=== PATIENT | female | born 1965 | race Caucasian/White ===

== ENCOUNTER → 2019-05-22 09:22 | Outpatient (BNVA) | payer OTHER, SELFPAY | PROVIDERS: Family Provider Nurse Practitioner Family; PCP Nurse Practitioner Family; Visit Provider Registered Nurse | DX: I10 Essential (primary) hypertension (principal); R60.9 Edema, unspecified; Z12.39 Encounter for other screening for malignant neoplasm of breast | CPT/HCPCS: 80053; 80061; 85025 ==

== ENCOUNTER 2019-11-16 06:00 | Outpatient (RCR) | payer OTHER, SELFPAY | END 2019-12-13 23:59 | disposition home or self-care (01) | LOC: WPT 06:00 | PROVIDERS: PCP Registered Nurse; Referring Provider Registered Nurse; Visit Provider Registered Nurse | DX: M65.822 Other synovitis and tenosynovitis, left upper arm (principal); R20.2 Paresthesia of skin | CPT/HCPCS: 97110; 97140; 97161 ==

== ENCOUNTER → 2020-08-05 10:29 | Outpatient (BNVA) | payer OTHER, SELFPAY | PROVIDERS: PCP Registered Nurse; Visit Provider Registered Nurse | DX: I10 Essential (primary) hypertension (principal); E78.5 Hyperlipidemia, unspecified; Z12.31 Encounter for screening mammogram for malignant neoplasm of breast; R60.9 Edema, unspecified; Z00.00 Encounter for general adult medical examination without abnormal findings; Z53.20 Procedure and treatment not carried out because of patient's decision for unspecified reasons; E66.01 Morbid (severe) obesity due to excess calories; Z68.43 Body mass index [BMI] 50.0-59.9, adult; Z71.3 Dietary counseling and surveillance | CPT/HCPCS: 80053; 80061; 85025 ==

== ENCOUNTER → 2021-07-16 11:08 | Outpatient (BNVA) | payer OTHER, SELFPAY | PROVIDERS: PCP Registered Nurse; Visit Provider Registered Nurse | DX: I10 Essential (primary) hypertension (principal); R60.9 Edema, unspecified; L65.9 Nonscarring hair loss, unspecified; E78.5 Hyperlipidemia, unspecified; R20.0 Anesthesia of skin; R20.2 Paresthesia of skin | CPT/HCPCS: 80053; 82306; 85025 ==

== ENCOUNTER → 2021-07-18 08:20 | Outpatient (BNVA) | payer OTHER, SELFPAY | PROVIDERS: PCP Registered Nurse; Visit Provider Registered Nurse | DX: I10 Essential (primary) hypertension (principal); R60.9 Edema, unspecified; L65.9 Nonscarring hair loss, unspecified; E78.5 Hyperlipidemia, unspecified; R20.0 Anesthesia of skin; R20.2 Paresthesia of skin; E66.01 Morbid (severe) obesity due to excess calories; Z68.43 Body mass index [BMI] 50.0-59.9, adult; L82.1 Other seborrheic keratosis | CPT/HCPCS: 80061; 82607; 84443 ==

== ENCOUNTER → 2021-07-24 11:13 | Outpatient (BNVA) | payer OTHER, SELFPAY | PROVIDERS: PCP Registered Nurse; Visit Provider Registered Nurse | DX: Z01.419 Encounter for gynecological examination (general) (routine) without abnormal findings (principal) | CPT/HCPCS: 87624 ==

== ENCOUNTER → 2021-07-30 09:13 | Outpatient (BNVA) | payer OTHER, SELFPAY | PROVIDERS: PCP Registered Nurse; Visit Provider Registered Nurse | DX: I10 Essential (primary) hypertension (principal); R60.9 Edema, unspecified; L65.9 Nonscarring hair loss, unspecified; E78.5 Hyperlipidemia, unspecified; R20.0 Anesthesia of skin; R20.2 Paresthesia of skin; Z12.31 Encounter for screening mammogram for malignant neoplasm of breast; E66.01 Morbid (severe) obesity due to excess calories; Z68.43 Body mass index [BMI] 50.0-59.9, adult; L82.1 Other seborrheic keratosis; L91.0 Hypertrophic scar | CPT/HCPCS: 80061; 82607; 84443 ==

== ENCOUNTER 2021-09-01 13:43 | Outpatient (CLI) | payer OTHER, SELFPAY ==
--- NOTE | 2021-09-01 13:53 | MM_ITS ---
WS: [id number] BILATERAL 3D TOMOSYNTHESIS DIGITAL SCREENING MAMMOGRAPHY WITH CAD CLINICAL INFORMATION: SCREEN HISTORY: Screening mammogram. No current complaints. COMPARISON: August 29, 2020 TECHNIQUE: Bilateral CC and MLO views. FINDINGS: Scattered fibroglandular densities bilaterally. A few incidental punctate calcifications. Stable dens e breast tissue upper outer breasts bilaterally which are benign. No suspicious focal mass, asymmetry , calcifications, or architectural distortion. No evidence of malignancy. MM/[place] [id number] IMPRESSION: BI-RADS: 2-Benign FOLLOW UP: 1 Year Follow-up Recommend return to annual screening mammography.
== END 2021-09-01 13:44 | disposition home or self-care (01) ==
LOC: RAD 13:44
PROVIDERS: PCP Registered Nurse; Visit Provider Registered Nurse
DX: Z12.31 Encounter for screening mammogram for malignant neoplasm of breast (principal)
CPT/HCPCS: 77063; 77067

== ENCOUNTER 2021-11-13 08:34 | Day surgery (SDC) | payer OTHER, SELFPAY ==
[2021-11-11 13:52] VITALS: BMI 49.4
[2021-11-13 08:50] VITALS: BP 187/129; PULSE 73; RESP 18; TEMP 36.9; O2SAT 96
--- NOTE | 2021-11-13 08:56 | W.PM.OPSFHP ---
Same Day Surgery H&P Indication for Procedure/HPI DATE OF PROCEDURE: November 13, 2021 CHIEF COMPLAINT/INDICATIONFOR SURGICAL PROCEDURE: Screening colonoscopy PREOP DIAGNOSIS: Screening colonoscopy PLANNED PROCEDURE: Operation Date: 11/13/21 10:30 Proposed Procedures p Colonoscopy 56057,Z12.11(Not Applicable) - Richard Rey MD This is a pleasant 55 years old female patient referred to my practice for screening colonoscopy. Patient had a positive Cologuard test she reports that she had hemorrhoid. No history of colon cancer ROS All systems have been reviewed negative except as for the above or per problem list. Medications/Allergies* Home Medications Medication Instructions Recorded Confirmed Type diltiazem HCl 360 mg 360 mg PO DAILY 11/11/21 11/13/21 History capsule,extended release 24 hr furosemide 40 mg tablet 40 mg PO DAILY 11/11/21 11/13/21 History potassium 99 mg tablet 99 mg PO DAILY 11/11/21 11/13/21 History telmisartan 20 mg tablet 20 mg PO DAILY 11/11/21 11/13/21 History Allergies/Adverse Reactions Allergy/AdvReac Type Severity Reaction Status Date / Time lisinopril Allergy Lip Verified 11/13/21 09:26 swelling and tingling Pertinent History/Comorbid Conditions* Medical History (Updated 09/30/21 @ 14:26 by ANTONINA Mckeon) Essential hypertension Family History (Updated 05/22/19 @ 08:31 by Kalyn Patel LPN) Hypertension Social History Smoking and tobacco status: never smoked Alcohol intake: never Adopted: No Caregiver/support person: No Lives independently: Yes Current occupational status: employed History of recent travel: No Current gender identity: Female Pertinent Exam Findings alert, oriented x 3, clear to auscultation bilaterally, regular rate & rhythm and procedure specific exam findings (Abdominal exam nontender nondistended soft) Recommendations Surgery/Procedure today (Colonoscopy with possible biopsy) Other Plans: Plan of care; After thorough history and physical examination and reviewing the chart, plan to perform screening colonoscopy. I discussed with the patient in details the risks,benefits,alternatives and indications.The risk of aspiration, bleeding, soft tissue injury, perforation of the colon and other potential concomitant complications were explained to the patient in details,also the potential need for Laproscoy/Laparotomy to repair any related complications including but not limited to colectomy and or Closotomy.The patient understood this well and did agree to proceed. Rationale was carefully and clearly discussed with the patient.Appropriate informed consent have been reviewed and signed All questions have been answered and all concerns have been addressed to patient's satisfaction. Verbal and written Instructions were given to the patient for colonoscopy prep Coding Level of Care Code Acute Convention Services Manager for [facility] Davis
[2021-11-13] MEDS: sodium chloride 0.9% 1,000 ML 30 ML IV (09:11)
--- NOTE | 2021-11-13 09:55 | ANES.PREANE2 ---
Pre-Anesthetic Assessment Height/Weight: Height 1.73 m Weight 147.418 kg Temp Pulse Resp BP Pulse Ox O2 Del Method 98.4 F 73 18 187/129 96 11/13/21 08:50 11/13/21 08:50 11/13/21 08:50 11/13/21 08:50 11/13/21 08:50 11/13/21 08:50 Preop Diagnosis: Screening colonoscopy Operation Date: 11/13/21 10:30 Proposed Procedures p Colonoscopy 31787,Z12.11(Not Applicable) - Richard Rey MD Familial anesthetic complications: None Was Beta Carisa taken within 24 hours: N/A Was Clonidine taken within 24 hours: N/A Last intake: Intake Last Liquid Date 11/12/21 Last Liquid Time 23:00 Last Solid Date 11/11/21 Last Solid Time 22:00 Social No alcohol and No tobacco Exam alert, oriented x 3, clear to auscultation bilaterally and regular rate & rhythm Airway Submandibular: within normal limits Cervical ROM: within normal limits Mallampati: Class I Dentition: full History/ROS No significant complaints Pulmonary None reported Snores loudly, tired in day, no witnessed apnea, high blood pressure, BMI > 35, Age > 50, large neck, female --> high risk for JAMAL CV/HEM Hypertension B12 deficiency None reported Hepatic None reported GI None reported Metabolic None reported Musc/skel Osteoarthritis/DJD (Chronic knee pain ) Alopecia Neuropsych None reported Anesthetic Plan ASA status: 3 Anesthesia: Anesthesia Evaluation, General and MAC Other: I discussed with the patient risks, goals, and benefits of MAC and general anesthesia. We discussed spectrum of MAC anesthesia including conversion to general as well as possibility of recall of intraoperative stimuli including discomfort/pain. Patient agrees to proceed with MAC. Risk of > 500 ml blood loss (7ml/kg in children): No Medications/Allergies Home Medications Medication Instructions Recorded Confirmed Last Taken Type cyanocobalamin (vitamin B-12) 1,000 mcg SUBCUT .once a month 08/01/21 11/13/21 10/17/21 Rx 1,000 mcg/mL injection kit days #1 ea needle 21 g #1 ea 08/01/21 10/16/21 Unknown Rx syringe 3 ml #1 ea 08/01/21 10/16/21 Unknown Rx diltiazem HCl 360 mg 360 mg PO DAILY 11/11/21 11/13/21 11/12/21 History capsule,extended release 24 hr furosemide 40 mg tablet 40 mg PO DAILY 11/11/21 11/13/21 11/12/21 History potassium 99 mg tablet 99 mg PO DAILY 11/11/21 11/13/21 11/12/21 History telmisartan 20 mg tablet 20 mg PO DAILY 11/11/21 11/13/21 11/12/21 History Allergies Allergy/AdvReac Type Severity Reaction Status Date / Time lisinopril Allergy Lip Verified 11/13/21 09:26 swelling and tingling Current Medications Generic Name Dose Route Start Last Admin Trade Name Freq PRN Reason Stop Dose Admin Sodium Chloride 1,000 mls @ 30 mls/hr 11/13/21 08:45 11/13/21 09:11 Sodium Chloride 0.9% IV 11/14/21 08:44 30 mls/hr .Q24H CHRISTIANO Administration PFSH Anesthesia Medical History Essential hypertension Family History Other Hypertension Social History Smoking and tobacco status: never smoked Alcohol intake: never Adopted: No Caregiver/support person: No Lives independently: Yes Current occupational status: employed History of recent travel: No Current gender identity: Female Data Anesthesia Cardiac Studies: No Data to Display
[2021-11-13 11:01] VITALS: BP 98/70; PULSE 68; RESP 12; TEMP 36.3; O2SAT 95
[2021-11-13 11:12] VITALS: BP 116/83; PULSE 61; RESP 16; O2SAT 97
--- NOTE | 2021-11-13 15:14 | ANE.PACU2 ---
Inpatient post-anesthesia follow up: Airway intact: Yes Vital signs: Temperature 97.3 F Pulse Rate 61 Respiratory Rate 16 Blood Pressure 116/83 Pulse Oximetry 97 Oxygen Delivery Me thod Room Air Oxygen Flow Rate Fraction of Inspir ed Oxygen Hydration adequate: Yes Nausea and vomiting: No Pain level: 1 Mental status: Baseline
== END 2021-11-13 11:27 | disposition home or self-care (01) ==
PROVIDERS: PCP Registered Nurse; Visit Provider Surgery
PROC: 0DJD8ZZ Inspection of Lower Intestinal Tract, Via Natural or Artificial Opening Endoscopic (ICD-10-PCS; CPT 45378; principal; 2021-11-13 10:30)
DX: Z12.11 Encounter for screening for malignant neoplasm of colon (principal); R19.5 Other fecal abnormalities; K64.9 Unspecified hemorrhoids; I10 Essential (primary) hypertension
CPT/HCPCS: 45378; J2704; J7030

== ENCOUNTER → 2021-12-23 10:14 | Outpatient (BNVA) | payer OTHER, SELFPAY | PROVIDERS: PCP Registered Nurse; Visit Provider Registered Nurse | DX: E53.8 Deficiency of other specified B group vitamins (principal) | CPT/HCPCS: 82607 ==

== ENCOUNTER → 2022-10-29 09:59 | Outpatient (BNVA) | payer OTHER, SELFPAY | PROVIDERS: PCP Registered Nurse; Visit Provider Registered Nurse | DX: E53.8 Deficiency of other specified B group vitamins (principal); Z00.00 Encounter for general adult medical examination without abnormal findings | CPT/HCPCS: 80053; 80061; 82607; 83036; 85025 ==

== ENCOUNTER 2022-11-12 14:18 | Outpatient (CLI) | payer OTHER, SELFPAY ==
--- NOTE | 2022-11-12 14:32 | MM_ITS ---
WS: [id number] BILATERAL SCREENING DIGITAL TOMOSYNTHESIS MAMMOGRAM WITH CAD HISTORY: Z00.00 - Encounter for general adult medical examination ... COMPARISON: 09/01/2021 and 08/29/2020 Bilateral CC and MLO views with tomosynthesis and synthetic mammography submitted. Computer aided det ection analyzed. Breast composition: There are scattered areas of fibroglandular density. No suspicious masses, microc alcifications or architectural distortion. IMPRESSION: MM/[place] [id number] BI-RADS: 1-Negative FOLLOW UP: 1 Year Follow-up
== END 2022-11-12 14:19 | disposition home or self-care (01) ==
LOC: RAD 14:20 → MOBLMAM 14:32
PROVIDERS: PCP Registered Nurse; Visit Provider Registered Nurse
DX: Z12.31 Encounter for screening mammogram for malignant neoplasm of breast (principal)
CPT/HCPCS: 77063; 77067

== ENCOUNTER → 2023-06-03 09:19 | Outpatient (BNVA) | payer OTHER, SELFPAY | PROVIDERS: PCP Registered Nurse; Visit Provider Registered Nurse | DX: E53.8 Deficiency of other specified B group vitamins (principal) | CPT/HCPCS: 82607 ==

== ENCOUNTER 2023-11-17 13:23 | Outpatient (CLI) | payer BC, SELFPAY ==
--- NOTE | 2023-11-17 13:20 | MM_ITS ---
WS: [id number] BILATERAL 3D TOMOSYNTHESIS DIGITAL SCREENING MAMMOGRAPHY WITH CAD CLINICAL INFORMATION: SCREENING HISTORY: Screening mammogram. No current complaints. COMPARISON: 2022 TECHNIQUE: Bilateral CC and MLO views. FINDINGS: The breasts are composed of heterogeneous fibroglandular density tissue, which can limit the detectio n of small underlying mass lesions. 6 mm subareolar LEFT breast nodule appears more prominent compare d to previous. Recommend further evaluation with LEFT breast diagnostic mammography and ultrasound. RIGHT breast is unremarkable. MM/[place] [id number] IMPRESSION: DENSITY:There are scattered areas of fibroglandular density. BI-RADS: 0 - Incomplete: Need additional imaging evaluation. FOLLOW UP: Need Additional Imaging Recommend LEFT breast diagnostic mammography and ultrasound.
== END 2023-11-17 13:24 | disposition home or self-care (01) ==
LOC: MOBLMAM 13:25
PROVIDERS: PCP Registered Nurse; Visit Provider Registered Nurse
DX: Z12.31 Encounter for screening mammogram for malignant neoplasm of breast (principal); R92.333 Mammographic heterogeneous density, bilateral breasts; N63.42 Unspecified lump in left breast, subareolar
CPT/HCPCS: 77063; 77067

== ENCOUNTER → 2023-12-09 12:03 | Outpatient (BNVA) | payer BC, SELFPAY | PROVIDERS: PCP Registered Nurse; Visit Provider Registered Nurse | DX: Z78.9 Other specified health status (principal) | CPT/HCPCS: 80053; 80061; 85025 ==

== ENCOUNTER 2024-01-06 09:59 | Outpatient (CLI) | payer BC, SELFPAY ==
--- NOTE | 2024-01-06 10:02 | MM_ITS ---
WS: [id number] LEFT 3D TOMOSYNTHESIS DIGITAL MAMMOGRAPHY WITH CAD CLINICAL INFORMATION: ABNORMAL MAMMOGRAM HISTORY: Additional views COMPARISON: 11/17/2023 TECHNIQUE: 2 views of the left breast were obtained. FINDINGS: The left breast is composed of heterogeneous fibroglandular density tissue, which can limit the detec tion of small underlying mass lesions. Previously described 6 mm nodule subareolar LEFT breast not as well seen today on the spot compressio n views. Dense tissue in this area. Suggestion of ductal ectasia in this area. Ultrasound is pending. ULTRASOUND BREAST LEFT TECHNIQUE: Ultrasound left breast focused area of concern. CLINICAL INFORMATION: ABNORMAL MAMMOGRAM FINDINGS: Ultrasound subareolar LEFT breast. Incidental ductal ectasia deep to the areola. No suspicious cystic or solid lesions. No suspicious lesions to target for biopsy. Recommend return to annual screen [facility]raphy[id number] IMPRESSION: DENSITY: The breasts are heterogeneously dense, which may obscure small masses. BI-RADS: 2 - Benign FOLLOW UP: 1 Year Follow-up Recommend return to annual screening mammography.
== END 2024-01-06 10:00 | disposition home or self-care (01) ==
LOC: RAD 10:00
PROVIDERS: PCP Registered Nurse; Visit Provider Registered Nurse
DX: N60.42 Mammary duct ectasia of left breast (principal); R92.332 Mammographic heterogeneous density, left breast
CPT/HCPCS: 76642; 77061; G0279

== ENCOUNTER → 2024-06-14 09:34 | Outpatient (BNVA) | payer BC, SELFPAY | PROVIDERS: PCP Registered Nurse; Visit Provider Registered Nurse | DX: E53.8 Deficiency of other specified B group vitamins (principal); L65.9 Nonscarring hair loss, unspecified | CPT/HCPCS: 82607 ==